=== PATIENT | female | born 1955 | race Caucasian/White ===

== ENCOUNTER → 2021-04-03 10:37 | Outpatient (CLI) | payer SELFPAY | PROVIDERS: Visit Provider Surgery | DX: Z01.818 Encounter for other preprocedural examination (principal); Z11.52 Encounter for screening for COVID-19 | CPT/HCPCS: U0003 ==

== ENCOUNTER 2021-05-03 13:55 | Outpatient (CLI) | payer MEDICARE, SELFPAY | END 2021-05-03 15:03 | disposition home or self-care (01) | LOC: INF 14:03 | PROVIDERS: PCP Family Medicine; Visit Provider Obstetrics & Gynecology Gynecologic Oncology | DX: Z45.2 Encounter for adjustment and management of vascular access device (principal) | CPT/HCPCS: 96523 ==

== ENCOUNTER 2021-05-10 13:43 | Outpatient (CLI) | payer MEDICARE, SELFPAY | END 2021-05-10 14:20 | disposition home or self-care (01) | LOC: INF 13:49 | PROVIDERS: PCP Emergency Medicine; Visit Provider Obstetrics & Gynecology Gynecologic Oncology | DX: Z45.2 Encounter for adjustment and management of vascular access device (principal) | CPT/HCPCS: 96523 ==

== ENCOUNTER 2021-05-24 13:49 | Outpatient (CLI) | payer MEDICARE, SELFPAY | END 2021-05-24 14:15 | disposition home or self-care (01) | LOC: INF 13:52 | PROVIDERS: PCP Family Medicine; Visit Provider Obstetrics & Gynecology Gynecologic Oncology | DX: Z45.2 Encounter for adjustment and management of vascular access device (principal) | CPT/HCPCS: 96523 ==

== ENCOUNTER 2021-05-31 13:55 | Outpatient (CLI) | payer MEDICARE, SELFPAY | END 2021-05-31 14:25 | disposition home or self-care (01) | LOC: INF 13:57 | PROVIDERS: PCP Family Medicine; Visit Provider Obstetrics & Gynecology Gynecologic Oncology | DX: Z45.2 Encounter for adjustment and management of vascular access device (principal) | CPT/HCPCS: 96523 ==

== ENCOUNTER 2021-06-14 14:00 | Outpatient (CLI) | payer MEDICARE, SELFPAY | END 2021-06-14 14:35 | disposition home or self-care (01) | LOC: INF 14:02 | PROVIDERS: PCP Family Medicine; Visit Provider Obstetrics & Gynecology Gynecologic Oncology | DX: Z45.2 Encounter for adjustment and management of vascular access device (principal) | CPT/HCPCS: 96523 ==

== ENCOUNTER 2021-06-21 14:35 | Outpatient (CLI) | payer MEDICARE, SELFPAY | END 2021-06-21 14:52 | disposition home or self-care (01) | LOC: INF 14:36 | PROVIDERS: PCP Family Medicine; Visit Provider Obstetrics & Gynecology Gynecologic Oncology | DX: Z45.2 Encounter for adjustment and management of vascular access device (principal) | CPT/HCPCS: 96523 ==

== ENCOUNTER 2021-07-06 13:52 | Outpatient (CLI) | payer MEDICARE, SELFPAY | END 2021-07-06 14:09 | disposition home or self-care (01) | LOC: INF 13:54 | PROVIDERS: PCP Family Medicine; Visit Provider Obstetrics & Gynecology Gynecologic Oncology | DX: Z45.2 Encounter for adjustment and management of vascular access device (principal) | CPT/HCPCS: 96523 ==

== ENCOUNTER 2021-07-12 13:46 | Outpatient (CLI) | payer MEDICARE, SELFPAY | END 2021-07-12 14:03 | disposition home or self-care (01) | LOC: INF 13:47 | PROVIDERS: Visit Provider Obstetrics & Gynecology Gynecologic Oncology | DX: Z45.2 Encounter for adjustment and management of vascular access device (principal) | CPT/HCPCS: 96523 ==

== ENCOUNTER 2021-08-02 13:54 | Outpatient (CLI) | payer MEDICARE, SELFPAY | END 2021-08-02 14:15 | disposition home or self-care (01) | LOC: INF 13:56 | PROVIDERS: PCP Family Medicine; Visit Provider Obstetrics & Gynecology Gynecologic Oncology | DX: Z45.2 Encounter for adjustment and management of vascular access device (principal) | CPT/HCPCS: 96523 ==

== ENCOUNTER → 2021-08-04 09:10 | Outpatient (CLI) | payer MEDICARE, SELFPAY ==
--- NOTE | 2021-08-04 09:21 | CA_ITS ---
FINAL REPORT TECHNIQUE: extremity venous duplex was performed with augmentation and compression. CLINICAL HISTORY: Post-op Pulmonary Embolism 03/2021 ,OvarianCA, Left lower leg redness with localized edema FINDINGS: Proper flow is seen throughout the deep venous system. There is no evidence of deep venous thrombosis. IMPRESSION: No deep venous thrombosis. Reviewed, Interpreted and Dictated by Yash Hardwick MD Transcribed by Mayuri Fulton Authenticated by Yash Hardwick MD on 08/04/2021 12:17:45 PM [facility]
== END ==
PROVIDERS: PCP Family Medicine; Visit Provider Nurse Practitioner Family
DX: M79.662 Pain in left lower leg (principal); M79.89 Other specified soft tissue disorders; R60.0 Localized edema
CPT/HCPCS: 93971

== ENCOUNTER 2021-08-17 13:56 | Outpatient (CLI) | payer MEDICARE, SELFPAY | END 2021-08-17 14:15 | disposition home or self-care (01) | LOC: INF 13:59 | PROVIDERS: PCP Family Medicine; Visit Provider Obstetrics & Gynecology Gynecologic Oncology | DX: Z45.2 Encounter for adjustment and management of vascular access device (principal) | CPT/HCPCS: 96523 ==

== ENCOUNTER 2021-08-23 13:44 | Outpatient (CLI) | payer MEDICARE, SELFPAY ==
[2021-08-23 14:25] VITALS: BP 134/72; PULSE 75; RESP 16; TEMP 36.6; O2SAT 99
== END 2021-08-23 14:25 | disposition home or self-care (01) ==
LOC: INF 13:45
PROVIDERS: PCP Emergency Medicine; Visit Provider Obstetrics & Gynecology Gynecologic Oncology
DX: Z45.2 Encounter for adjustment and management of vascular access device (principal)
CPT/HCPCS: 96523

== ENCOUNTER 2021-08-30 13:51 | Outpatient (CLI) | payer MEDICARE, SELFPAY | END 2021-08-30 14:14 | disposition home or self-care (01) | LOC: INF 13:52 | PROVIDERS: Visit Provider Obstetrics & Gynecology Gynecologic Oncology | DX: Z45.2 Encounter for adjustment and management of vascular access device (principal) | CPT/HCPCS: 96523 ==

== ENCOUNTER 2021-09-20 13:40 | Outpatient (CLI) | payer MEDICARE, SELFPAY | END 2021-09-20 13:55 | disposition home or self-care (01) | LOC: INF 13:41 | PROVIDERS: Visit Provider Obstetrics & Gynecology Gynecologic Oncology | DX: Z45.2 Encounter for adjustment and management of vascular access device (principal) | CPT/HCPCS: 96523 ==

== ENCOUNTER 2021-09-27 08:17 | Outpatient (CLI) | payer MEDICARE, SELFPAY | END 2021-09-27 14:10 | disposition home or self-care (01) | LOC: INF 08:18 | PROVIDERS: Visit Provider Obstetrics & Gynecology Gynecologic Oncology | DX: Z45.2 Encounter for adjustment and management of vascular access device (principal) | CPT/HCPCS: 96523 ==

== ENCOUNTER 2021-10-12 13:48 | Outpatient (CLI) | payer MEDICARE, SELFPAY | END 2021-10-12 14:05 | disposition home or self-care (01) | LOC: INF 13:49 | PROVIDERS: PCP Emergency Medicine; Visit Provider Obstetrics & Gynecology Gynecologic Oncology | DX: Z45.2 Encounter for adjustment and management of vascular access device (principal) | CPT/HCPCS: 96523 ==

== ENCOUNTER 2021-10-27 14:04 | Outpatient (CLI) | payer MEDICARE, SELFPAY | END 2021-10-27 14:25 | disposition home or self-care (01) | LOC: SC.PAIN 14:07 → INF 14:29 | PROVIDERS: PCP Emergency Medicine; Visit Provider Obstetrics & Gynecology Gynecologic Oncology | DX: Z45.2 Encounter for adjustment and management of vascular access device (principal) | CPT/HCPCS: 96523 ==

== ENCOUNTER 2021-11-04 13:55 | Outpatient (CLI) | payer MEDICARE, SELFPAY | END 2021-11-04 14:15 | disposition home or self-care (01) | LOC: INF 13:57 | PROVIDERS: PCP Emergency Medicine; Visit Provider Obstetrics & Gynecology Gynecologic Oncology | DX: Z48.01 Encounter for change or removal of surgical wound dressing (principal) | CPT/HCPCS: 96523 ==

== ENCOUNTER 2021-11-09 13:50 | Outpatient (CLI) | payer MEDICARE, SELFPAY | END 2021-11-09 14:05 | disposition home or self-care (01) | LOC: INF 13:51 | PROVIDERS: PCP Emergency Medicine; Visit Provider Obstetrics & Gynecology Gynecologic Oncology | DX: Z45.2 Encounter for adjustment and management of vascular access device (principal) | CPT/HCPCS: 96523 ==

== ENCOUNTER 2021-11-24 13:48 | Outpatient (CLI) | payer MEDICARE, SELFPAY | END 2021-11-24 14:00 | disposition home or self-care (01) | LOC: INF 13:50 | PROVIDERS: PCP Emergency Medicine; Visit Provider Obstetrics & Gynecology Gynecologic Oncology | DX: Z45.2 Encounter for adjustment and management of vascular access device (principal) | CPT/HCPCS: 96523 ==

== ENCOUNTER 2021-11-30 14:00 | Outpatient (CLI) | payer MEDICARE, SELFPAY | END 2021-11-30 14:12 | disposition home or self-care (01) | LOC: INF 14:01 | PROVIDERS: PCP Emergency Medicine; Visit Provider Obstetrics & Gynecology Gynecologic Oncology | DX: Z45.2 Encounter for adjustment and management of vascular access device (principal) | CPT/HCPCS: 96523 ==

== ENCOUNTER 2021-12-07 13:29 | Outpatient (CLI) | payer MEDICARE, SELFPAY | END 2021-12-07 13:42 | disposition home or self-care (01) | LOC: INF 13:30 | PROVIDERS: PCP Emergency Medicine; Visit Provider Obstetrics & Gynecology Gynecologic Oncology | DX: Z45.2 Encounter for adjustment and management of vascular access device (principal) | CPT/HCPCS: 96523 ==

== ENCOUNTER 2021-12-22 11:39 | Outpatient (CLI) | payer MEDICARE, SELFPAY | END 2021-12-22 12:00 | disposition home or self-care (01) | LOC: INF 11:40 | PROVIDERS: PCP Emergency Medicine; Visit Provider Obstetrics & Gynecology Gynecologic Oncology | DX: Z45.2 Encounter for adjustment and management of vascular access device (principal) | CPT/HCPCS: 96523 ==

== ENCOUNTER 2021-12-28 11:46 | Outpatient (CLI) | payer MEDICARE, SELFPAY | END 2021-12-28 12:12 | disposition home or self-care (01) | LOC: INF 11:47 | PROVIDERS: PCP Emergency Medicine; Visit Provider Obstetrics & Gynecology Gynecologic Oncology | DX: Z45.2 Encounter for adjustment and management of vascular access device (principal) | CPT/HCPCS: 96523 ==

== ENCOUNTER 2022-01-04 12:08 | Outpatient (CLI) | payer MEDICARE, SELFPAY | END 2022-01-04 12:20 | disposition home or self-care (01) | LOC: INF 12:09 | PROVIDERS: Visit Provider Obstetrics & Gynecology Gynecologic Oncology | DX: Z45.2 Encounter for adjustment and management of vascular access device (principal) | CPT/HCPCS: 96523 ==

== ENCOUNTER → 2022-01-28 08:51 | Outpatient (CLI) | payer MEDICARE, SELFPAY ==
--- NOTE | 2022-01-28 09:04 | CT_ITS ---
FINAL REPORT CLINICAL HISTORY: OVARIAN CANCER, FOLLOW UP FINDINGS: Axial CT images of the chest were obtained with contrast. Coronal reformatted images were also obtained. This study was performed with techniques to keep radiation doses as low as reasonably achievable, (ALARA). Individualized dose reduction techniques using automated exposure control or adjustment of mA and/or KV according to the patient's size were employed. There are small thyroid nodules. Small mediastinal nodes are seen without evidence of adenopathy. No axillary mass or adenopathy is identified. On lung window images, no pulmonary mass or dominant pulmonary nodule is identified. No localized pulmonary inflammatory process is identified. There is mild atelectasis at the lung bases. There is a calcified granuloma in the left lung base. IMPRESSION: Small thyroid nodules which could be further evaluated with ultrasound. Reviewed, Interpreted and Dictated by Fan Hinds III, MD Transcribed by Radha Mills Authenticated and [facility]
--- NOTE | 2022-01-28 09:04 | CT_ITS ---
FINAL REPORT TECHNIQUE: After the administration of oral and intravenous contrast, axial images were obtained through the abdomen and pelvis by computed tomography. The study was performed with techniques to keep radiation dose as low as reasonably achievable, (ALARA). Individual dose reduction techniques using automated exposure control or adjustment of mA and/or kV according to the patient's size were employed. CLINICAL HISTORY: OVARIAN CANCER., FOLLOW UP FINDINGS: Abdomen: There is a mass in or adjacent to the anterior aspect of the left hepatic lobe measuring 20 mm. There is a mass in the lateral segment of the left hepatic lobe measuring 16 mm. There is a 19 mm mass, favor the right perihepatic space over superficial liver. The spleen is unremarkable. The adrenals are normal. The pancreas is unremarkable. The kidneys enhance appropriately. The aorta is normal in caliber. There is an enlarging interaortocaval node measuring 14 mm. There are multiple mildly enlarged mesenteric nodes measuring up to 13 mm. There is a left abdomen soft tissue nodule anterior to the psoas muscle measuring 9 mm. Findings well seen on image 63. There is no evidence of free fluid. Pelvis: The appendix is not identified. The patient is status post hysterectomy. There is mild sigmoid and rectal colon wall thickening, likely inflammatory. The urinary bladder is unremarkable. There is no free fluid. IMPRESSION: Findings consistent with metastatic disease, hepatic versus peritoneal metastases. Reviewed, Interpreted and Dictated by Fan Hinds III, MD Transcribed by Radha Mills Authenticated and [facility]
== END ==
PROVIDERS: PCP Emergency Medicine; Visit Provider Obstetrics & Gynecology Gynecologic Oncology
DX: C56.9 Malignant neoplasm of unspecified ovary (principal)
CPT/HCPCS: 71260; 74177; Q9967

== ENCOUNTER 2023-06-05 15:00 | Outpatient (RCR) | payer MEDICARE, SELFPAY | END 2023-06-12 11:28 | disposition home or self-care (01) | LOC: PT 15:00 | PROVIDERS: PCP Emergency Medicine; Visit Provider Nurse Practitioner Acute Care | DX: S82.892A Other fracture of left lower leg, initial encounter for closed fracture (principal) | CPT/HCPCS: 97110; 97112; 97116; 97140; 97163; 97164; 97530 ==